=== PATIENT | male | born 1980 | race Caucasian/White ===

== ENCOUNTER 2020-01-11 15:17 | Emergency (ER) | payer OTHER, SELFPAY ==
[2020-01-11 15:21] VITALS: BP 139/75; PULSE 88; RESP 16; TEMP 36.6; O2SAT 100
--- NOTE | 2020-01-11 15:35 | ED.SKABFB ---
HPI - Skin/Abscess/Foreign Bdy General Chief complaint: Skin/Abscess/Foreign Body Stated complaint: rash Time Seen by Provider: 01/11/20 15:30 Source: patient and RN notes reviewed Mode of arrival: ambulatory Limitations: no limitations History of Present Illness HPI narrative: Patient presents today complaining of eczema to his hands and fingers. It has been present for several months and waxes and wanes in intensity. He is new to town. Previous physician had him on 0.05% Clobetosol ointment, which has not been helping lately. He reports worst rash to left 4th and right 5th fingers with some swelling as well. In between steroid cream applications he applies lotion. MD complaint: rash Related Data Home Medications Medication Instructions Recorded Confirmed clobetasol 01/11/20 Allergies Allergy/AdvReac Type Severity Reaction Status Date / Time No Known Allergies Allergy Verified 01/11/20 15:31 Review of Systems Review of Systems: Narrative: CONSTITUTIONAL: Denies body aches, fever, chills, or sweats. EYES: Denies visual changes, redness, or discharge. ENT: Denies rhinorrhea, congestion, sore throat, or otalgia. CARDIOVASCULAR: Denies chest pain, palpitations, or edema. RESPIRATORY: Denies cough or dyspnea. GASTROINTESTINAL: Denies abdominal pain, nausea, vomiting, or diarrhea. GENITOURINARY: Denies dysuria or hematuria. SKIN: Denies itching, or wounds. + Rash MUSCULOSKELETAL: Denies back pain, joint pain, or myalgia. NEUROLOGIC: Denies headache, numbness, tingling, or weakness. PSYCH: Denies depression or anxiety. [facility] Past Medical History Medical History (Updated 01/11/20 @ 15:52 by Farheen Mendez, [facility], ) Eczema Comments At time of signature, I have reviewed and agree with nursing past medical, surgical, social and family history unless otherwise noted. Please see nursing chart for further information. There is no relevant family history pertinent to the presenting complaint Exam Narrative: Exam Narrative: GENERAL: Well-appearing, well-nourished, and in no acute distress. HEAD: Normocephalic, atraumatic. EYES: EOMI. No redness or drainage. Conjunctivae normal. ENT: Mucous membranes pink and moist. NECK: Normal AROM. CHEST: No respiratory distress. EXTREMITIES: Normal range of motion. No edema. SKIN: Warm, dry. Capillary refill normal. Normal skin turgor. Bilateral hands and fingers with eczematous, crusting, rash. No signs of infection such as redness. Most severe to left 4th and right 5th fingers. No drainage. Distal sensation intact. Capillary refill normal. Full AROM of all fingers. NEURO: No focal deficits. Alert and oriented x3. Gait steady. PSYCH: Normal affect. No signs of depression or anxiety. Course Vital Signs Vital signs: Vital Signs Temperature 97.9 F 01/11/20 15:21 Pulse Rate 88 01/11/20 15:21 Respiratory Rate 16 01/11/20 15:21 Blood Pressure 139/75 01/11/20 15:21 Pulse Oximetry 100 01/11/20 15:21 Temperature 97.9 F 01/11/20 15:21 Pulse Rate 88 01/11/20 15:21 Respiratory Rate 16 01/11/20 15:21 Blood Pressure 139/75 01/11/20 15:21 Pulse Oximetry 100 01/11/20 15:21 Reviewed. Pt has been instructed to follow up with his PCP regarding his elevated blood pressure today. MDM - Skin/Abscess/Foreign Bdy Differential Diagnosis Differential diagnosis: Likely abscess of skin or subcutaneous tissue, urticaria, cellulitis, eczema, impetigo and contact dermatitis Critical Care Time Critical Care Time Critical Care Time: No Discharge Plan Discharge Clinical Impression: Dyshidrotic eczema Patient Disposition: Home, Self-Care Condition: Stable Instructions: Dyshidrotic Eczema (ED) Additional Instructions: Please use the triamcinolone and prednisone as directed. Monitor for any signs of bacterial infection such as redness, increased pain or drainage. Follow-up with your PCP if you note any of the symptoms. Your b
== END 2020-01-11 15:41 | disposition home or self-care (01) ==
PROVIDERS: Emergency Provider Nurse Practitioner
DX: L30.1 Dyshidrosis [pompholyx] (principal)
CPT/HCPCS: 99213; G0463

== ENCOUNTER 2023-04-17 13:52 | Emergency (ER) | payer OTHER, SELFPAY ==
[2023-04-17 14:07] VITALS: BP 125/63; PULSE 85; RESP 16; TEMP 36.7; O2SAT 99
--- NOTE | 2023-04-17 14:31 | ED.URI ---
HPI - URI/Sore Throat General Chief Complaint: Upper Respiratory Infection Stated Complaint: Sinus Infection Time Seen by Provider: 04/17/23 14:15 Source: patient Mode of arrival: ambulatory Limitations: no limitations History of Present Illness HPI Narrative: Guillermo is a 42-year-old female patient presenting to the clinic today with complaints of sinus congestion times 4-5 days. He denies any fever or chills. MD elicited complaint: cough, nasal congestion and sinus pain Related Data Home Medications Medication Instructions Recorded Confirmed clobetasol 01/11/20 Allergies Allergy/AdvReac Type Severity Reaction Status Date / Time No Known Allergies Allergy Verified 04/17/23 14:22 Review of Systems Review of Systems: Pertinent positives per HPI. Patient denies any fever, chills, rash, headache, visual changes, dizziness, shortness of breath, chest pain, palpitations, nausea, vomiting, diarrhea, constipation, abdominal pain, or any urinary issues. [facility] Past Medical History Medical History (Updated 04/17/23 @ 14:31 by Sae Doshi APRN) Eczema Comments At the time of my signature, I reviewed and agree with the nursing past medical, surgical, social, and family history. There is no relevant family history pertinent to the patient complaint. Exam Narrative: General: Well-developed, well nourished, in no apparent distress Head: Normocephalic, atraumatic Eyes: Pupils equally round and reactive to light bilaterally, EOM intact, sclera and conjunctive clear, no discharge, lids normal Ears: TMs intact and clear, ear canals clear, no drainage, grossly hearing normal. Nose: Nares patent, clear nasal discharge, no inflammation, no sinus tenderness. Mouth: Oral pharynx without lesions or masses, good dentition, MMM. Neck: Supple, trachea midline, no enlargement of anterior or posterior cervical nodes, no thyroid masses or goiter palpable. Cardio: Regular rate and rhythm, s1 and s2 normal, no murmur appreciated. Resp: Clear to auscultation bilaterally, no rhonchi, rales, wheezing or rubs Course Course Emergency Course: Portions of this record may have been created with voice recognition software. At the time of visit patient is resting comfortably on the exam table. Patient appears to be nontoxic. I suspect patient has URI. Prescription for prednisone was sent to pharmacy. Supportive measures were discussed with the patient and they voiced understanding discharge instructions and agrees to treatment plan. Return precautions reviewed Level of Care: Express Care Visit Vital Signs Vital signs: Vital Signs Temperature 36.7 C 04/17/23 14:07 Pulse Rate 85 04/17/23 14:07 Respiratory Rate 16 04/17/23 14:07 Blood Pressure 125/63 04/17/23 14:07 Pulse Oximetry 99 04/17/23 14:07 Temperature 36.7 C 04/17/23 14:07 Pulse Rate 85 04/17/23 14:07 Respiratory Rate 16 04/17/23 14:07 Blood Pressure 125/63 04/17/23 14:07 Pulse Oximetry 99 04/17/23 14:07 Vital signs reviewed MDM - URI/Sore Throat Differential Diagnosis Differential diagnosis: Likely upper respiratory infection, otitis media, sinusitis, viral infection, bronchitis, influenza, pharyngitis and other (COVID) Discharge Plan Discharge Clinical Impression: Upper respiratory infection Patient Disposition: Home, Self-Care Condition: Stable Instructions: Antibiotic Form, Cold Symptoms (ED) Additional Instructions: Take prescription medications only as prescribed-prednisone Increase fluids and stay well hydrated Tylenol/motrin for pain/fever Flonase and OTC antihistamines as directed Vicks vapor rub to open sinuses Sinus rinses for congestion Cepacol spray, cough drops, throat lozenges, warm tea with honey/lemon, gargle salt water to soothe throat BRAT diet for diarrhea Clear liquids x 24 hours then advance as tolerated for nausea/vomiting Go to the ED if you develop a worse
== END 2023-04-17 14:33 | disposition home or self-care (01) ==
PROVIDERS: Emergency Provider Nurse Practitioner Family; PCP Family Medicine
DX: J06.9 Acute upper respiratory infection, unspecified (principal); L30.9 Dermatitis, unspecified
CPT/HCPCS: 99203; G0463